=== PATIENT | female | born 1935 | race Caucasian/White ===

== ENCOUNTER → 2016-09-21 | Outpatient (CLI) | payer MEDICARE | END | disposition home or self-care (01) | LOC: PCVCCLINIC 10:45 | PROVIDERS: ATTEND Internal Medicine Cardiovascular Disease | DX: I25.10 Atherosclerotic heart disease of native coronary artery without angina pectoris (principal); I10 Essential (primary) hypertension; E78.5 Hyperlipidemia, unspecified; I77.89 Other specified disorders of arteries and arterioles; Z95.5 Presence of coronary angioplasty implant and graft; Z79.82 Long term (current) use of aspirin | CPT/HCPCS: 80061; 93005; G0463 ==

== ENCOUNTER → 2017-01-12 | Outpatient (CLI) | payer MEDICARE ==
--- NOTE | 2017-01-12 18:32 | PCVCIMAG ---
APPROVED REPORT Exam: Stress Echocardiogram Indication: CAD s/p PCI, Hypertension, Hyperlipidemia Patient Location: Echo lab Stress Nurse: Lore Wood RN Room #: 2 Status: routine Ht: 5 ft 2 in HR: 84 bpm BP: 126/76 mmHg Rhythm: NSR Medical History Medical History: CAD s/p stent, HTN, Hyperlipidemia Cardiac Risk Factors: HTN, Hyperlipidemia Previous Cardiac Procedures: PCI Pretest Chest Pain Characteristics: No chest pain Exercise History: Indeterminate Procedure The patient underwent an Exercise Stress Test using the Rodger Protocol. Blood pressure, heart rate, and EKG were monitored. An Echocardiogram was performed by seed laboratory technician in four stages in quad fashion. At peak stress, four selected images were obtained and placed side by side with resting images for comparison. Stress Test Details Stress Test: Exercise stress testing was performed using a Rodger protocol. HR Resting HR: 84 bpmMax Heart Rate (APMHR): 139 bpm Max HR Achieved: 146 bpmTarget HR (85% APMHR): 118 bpm % of APMHR: 105 Recovery HR: 93 bpm HR response to stress: Normal HR response to stress BP Resting BP: 126/76 mmHg Max BP: 148/66 mmHg Recovery BP: 110/60 mmHg ECG Resting ECG: Sinus Rhythm Stress ECG: Sinus Rhythm ST Change: Non-ischemic Arrhythmia: Rare PSVT Recovery ECG: Sinus Rhythm Recovery ST Change: Non-ischemic Recovery Arrhythmia: None Clinical Reason for Termination: Maximal effort Stress Symptoms: none Exercise duration: 6 min 55 sec Highest Stage Achieved: Stage 3: 3.4 mph at 14% grade. Exercise capacity: 9.8 METs Overall Exercise Capacity for Age: Good Angina Score: None Stress ECG Conclusion The patient exercised according to the Rodger Protocol for 6:55 minutes, achieving a maximum work level of 9.8 METS. The resting heart rate of 89 bpm, esperanza to a maximal level of146 bpm. This value % of the maximal, age-predicted heart rate. The resting blood pressure of126/76 mmHg, esperanza to a maximum blood pressure of 148/66 mmHg. The exercise was stopped due to fatigue. Pre-Stress Echo The resting Echocardiogram showed normal left ventricular contractility with an estimated Ejection Fraction of about >55%. Normal wall motion in all segments on baseline images. Post-Stress Echo The stress Echocardiogram showed normal left ventricular contractility with an estimated Ejection Fraction of about 65-70%. Normal augmentation of wall motion in all segments on post stress images. Clinical No clinical or ECG evidence for ischemia. Conclusion Clinical Response: Non-ischemic Exercise Capacity: Average Stress ECG Response: Non-ischemic Stress Echo Images: Non-ischemic No clinical, EKG or echocardiographic evidence for ischemia. No echocardiographic evidence for exercise induced ischemia. Normal stress echocardiogram with maximal exercise stress. <Conclusion> No clinical, EKG or echocardiographic evidence for ischemia. No echocardiographic evidence for exercise induced ischemia. Normal stress echocardiogram with maximal exercise stress.
== END | disposition home or self-care (01) ==
LOC: PCVCIMAG 12:42
PROVIDERS: ATTEND Internal Medicine Cardiovascular Disease
DX: I25.10 Atherosclerotic heart disease of native coronary artery without angina pectoris (principal); I10 Essential (primary) hypertension; E78.5 Hyperlipidemia, unspecified; Z95.5 Presence of coronary angioplasty implant and graft
CPT/HCPCS: 93325; 93351

== ENCOUNTER → 2017-11-13 | Outpatient (CLI) | payer MEDICARE | END | disposition home or self-care (01) | LOC: PCVCCLINIC 14:37 | PROVIDERS: ATTEND Internal Medicine Cardiovascular Disease | DX: I25.10 Atherosclerotic heart disease of native coronary artery without angina pectoris (principal); I10 Essential (primary) hypertension; E78.00 Pure hypercholesterolemia, unspecified; I77.9 Disorder of arteries and arterioles, unspecified; Z79.82 Long term (current) use of aspirin | CPT/HCPCS: 80061; 93005; G0463 ==

== ENCOUNTER → 2018-08-06 | Outpatient (CLI) | payer MEDICARE ==
--- NOTE | 2018-08-06 11:29 | PCVCIMAG ---
APPROVED REPORT Study performed: 08/06/2018 10:06:57 Exam: Stress Echocardiogram Indication: CAD, Stent,, Hyperlipidemia, Hypertension Patient Location: Echo lab Stress Nurse: Georgina Rascno RN Status: routine Ht: 5 ft 2 in HR: 87 bpm BP: 124/68 mmHg Rhythm: NSR Medical History Medical History: CAD s/p stent, Hyperlipidemia, HTN Procedure The patient underwent an Exercise Stress Test using the Rodger Protocol. Blood pressure, heart rate, and EKG were monitored. An Echocardiogram was performed by railroad signal technician in four stages in quad fashion. At peak stress, four selected images were obtained and placed side by side with resting images for comparison. Stress Test Details Stress Test: Exercise stress testing was performed using a Rodger protocol. HR Resting HR: 87 bpmMax Heart Rate (APMHR): 138 bpm Max HR Achieved: 150 bpmTarget HR (85% APMHR): 117 bpm % of APMHR: 108 Recovery HR: 93 bpm HR response to stress: Normal HR response to stress BP Resting BP: 124/68 mmHg Max BP: 138/70 mmHg Recovery BP: 126/78 mmHg BP response to stress: Normal blood pressure response to stress. ECG Resting ECG: Sinus Rhythm Stress ECG: Sinus Rhythm Recovery ECG: Sinus Rhythm Clinical Reason for Termination: Maximal effort Exercise duration: 9 min sec Highest Stage Achieved: Stage 3: 3.4 mph at 14% grade. Exercise capacity: 10.40 METs Overall Exercise Capacity for Age: Normal Pre-Stress Echo The resting Echocardiogram showed normal left ventricular contractility with an estimated Ejection Fraction of about 55-60%. Normal wall motion in all segments on baseline images. Post-Stress Echo The stress Echocardiogram showed normal left ventricular contractility with an estimated Ejection Fraction of about 60-65%. Normal augmentation of wall motion in all segments on post stress images. Clinical No clinical or ECG evidence for ischemia. Conclusion Clinical Response: Non-ischemic Exercise Capacity: Average Stress ECG Response: Non-ischemic Stress Echo Images: Non-ischemic The left ventricle is normal in size and wall thickness in both the rest and stress images. Other Information Study Quality: Good <Conclusion> The left ventricle is normal in size and wall thickness in both the rest and stress images.
== END | disposition home or self-care (01) ==
LOC: PCVCIMAG 09:53
PROVIDERS: ATTEND Internal Medicine Cardiovascular Disease
DX: I25.10 Atherosclerotic heart disease of native coronary artery without angina pectoris (principal); E78.5 Hyperlipidemia, unspecified; I10 Essential (primary) hypertension
CPT/HCPCS: 93325; 93351